=== PATIENT | female | born 1970 | race Caucasian/White ===

== ENCOUNTER 2022-04-25 20:57 | Emergency (ER) | payer OTHER ==
[~2022-04-25] VITALS: Ht 162.6 cm; Wt 61.2 kg
[~2022-04-25 20:57] MED LIST: FIORICET 50-301 EACH PO
== END 2022-04-25 23:41 | disposition home or self-care (01) ==
LOC: ER 20:57
DX: G56.01 Carpal tunnel syndrome, right upper limb (principal); M25.531 Pain in right wrist; Z88.6 Allergy status to analgesic agent; Z91.013 Allergy to seafood